=== PATIENT | female | born 1985 | race Hispanic/Latino ===

== ENCOUNTER 2016-07-11 17:27 | Emergency (ER) | payer MEDICAID, OTHER ==
[2016-07-11 18:22] VITALS: BMI 35.4
[2016-07-11 18:25] VITALS: BP 130/88; PULSE 108; RESP 18; TEMP 98.1; O2SAT 97
== END 2016-07-12 04:02 | disposition left against medical advice (07) ==
LOC: ED 17:27
DX: Z02.89 Encounter for other administrative examinations (principal); L02.91 Cutaneous abscess, unspecified

== ENCOUNTER 2016-11-06 21:32 | Emergency (ER) | payer OTHER ==
[2016-11-06 21:37] VITALS: O2SAT 100; BMI 30.1
[2016-11-06] MEDS ORDERED: DiphenhydrAMINE 50 mg/ml Inj IVP STA (21:42)
--- NOTE | 2016-11-06 21:53 | ED PDOC ---
Arrival/HPI <Julian Pedersen - Last Filed: 11/06/16 22:27> - General Historian: Patient <Rashard Palma A - Last Filed: 11/06/16 22:48> - General Chief Complaint: Headache Time Seen by Provider: 11/06/16 21:39 - History of Present Illness Narrative History of Present Illness (Text): 11/06/16 21:50 89yo female with PMHx of Migraine headache present with complaint of headache with associated nausea and vomiting x 3days. Notes she takes Immitrex and Zofran for her headache. States she ran out of her Xofran and feel she is dehydrated. States also still having headache. +Photophobia. She denies focal weakness, visual changes, trauma, abdominal pain, aphasia, any other complaint. (Rashard Palma A) Past Medical History - Provider Review Nursing Documentation Reviewed: Yes - Infectious Disease Hx of Infectious Diseases: None - Cardiac Hx Cardiac Disorders: No - Pulmonary Hx Respiratory Disorders: No - Neurological Hx Migraine: Yes - HEENT Hx HEENT Disorder: No - Renal Hx Renal Disorder: No - Endocrine/Metabolic Hx Endocrine Disorders: No - Hematological/Oncological Hx Blood Disorders: No - Integumentary Hx Dermatological Disorder: No - Musculoskeletal/Rheumatological Hx Musculoskeletal Disorders: No - Gastrointestinal Hx Gastrointestinal Disorders: No - Genitourinary/Gynecological Hx Genitourinary Disorders: No - Psychiatric Hx Psychophysiologic Disorder: No Hx Substance Use: No - Surgical History Hx Section: Yes (X 2) - Anesthesia Hx Anesthesia: No Hx Anesthesia Reactions: No Hx Malignant Hyperthermia: No <Rashard Palma - Last Filed: 11/06/16 22:48> Family/Social History - Physician Review Nursing Documentation Reviewed: Yes Family/Social History: Unknown Family HX Smoking Status: Light Smoker < 10 Cigarettes Daily Hx Alcohol Use: No Hx Substance Use: No <Rashard Palma A - Last Filed: 11/06/16 22:48> Allergies/Home Meds <Julian Pedersen - Last Filed: 11/06/16 22:27> <Rashard Palma A - Last Filed: 11/06/16 22:48> Allergies/Adverse Reactions: Allergies amoxicillin trihydrate [From Augmentin] Allergy (Verified 11/06/16 21:37) RASH potassium clavulanate [From Augmentin] Allergy (Verified 11/06/16 21:37) RASH Home Medications: Home Meds Medication Instructions Recorded Confirmed Aspirin/Acetaminophen/Caffeine 2 tab PO BID 11/06/16 11/06/16 [Excedrin Migraine Caplet] SUMAtriptan [Imitrex Tab] 50 mg PO BID PRN 11/06/16 11/06/16 Review of Systems - Physician Review All systems were reviewed & negative as marked: Yes - Review of Systems Constitutional: Normal Eyes: Normal ENT: Normal Respiratory: Normal Cardiovascular: Normal Gastrointestinal: Normal, Nausea, Vomiting. absent: Abdominal Pain, Constipation, Diarrhea, Hematochezia, Hematemesis Genitourinary Female: Normal Musculoskeletal: Normal Skin: Normal Neurological: Headache. absent: Dizziness, Focal Weakness Endocrine: Normal Hemo/Lymphatic: Normal Psychiatric: Normal <Diru,Happiness A - Last Filed: 11/06/16 22:48> Physical Exam Vital Signs Reviewed: Yes Temperature: Afebrile Blood Pressure: Normal Pulse: Regular Respiratory Rate: Normal Appearance: Positive for: Well-Appearing, Non-Toxic, Comfortable Pain Distress: None Mental Status: Positive for: Alert and Oriented X 3 - Systems Exam Head: Present: Atraumatic, Normocephalic Pupils: Present: PERRL Extroacular Muscles: Present: EOMI Conjunctiva: Present: Normal Mouth: Present: Moist Mucous Membranes Neck: Present: Normal Range of Motion Respiratory/Chest: Present: Clear to Auscultation, Good Air Exchange. No: Respiratory Distress, Accessory Muscle Use Cardiovascular: Present: Regular Rate and Rhythm, Normal S1, S2. No: Murmurs Abdomen: Present: Normal Bowel Sounds. No: Tenderness, Distention, Peritoneal Signs Back: Present: Normal Inspection Upper Extremity: Present: Normal Inspection. No: Cyanosis, Edema Lower Extremity: Present: Normal Inspection. No: Edema Neurological: Present: GCS=15, CN II-XII Intact, Speech Normal, Motor Func Grossly Intact, Normal Sensory Function, Normal Cerebellar Funct, Norm Deep Tendon Reflexes, Gait Normal, Memory Normal, Normal 2Pt Descrimination, Other ( No focal neurological deficit) Skin: Present: Warm, Dry, Normal Color. No: Rashes Psychiatric: Present: Alert, Oriented x 3, Normal Insight, Normal Concentration <Diru,Happiness A - Last Filed: 11/06/16 22:48> Vital Signs Temp Pulse Resp BP Pulse Ox 11/06/16 21:35 98.6 F 86 18 132/87 100 - PA / CLASSICS PROFESSOR / Resident Statement MD/DO has reviewed & agrees with the documentation as recorded. <Julian Pedersen - Last Filed: 11/06/16 22:27> Disposition/Present on Arrival <Julian Pedersen - Last Filed: 11/06/16 22:27> - Present on Arrival Any Indicators Present on Arrival: No History of DVT/PE: No History of Uncontrolled Diabetes: No Urinary Catheter: No History of Decub. Ulcer: No History Surgical Site Infection Following: None - Disposition Have Diagnosis and Disposition been Completed?: Yes Patient Plan: Discharge <Rashard Palma - Last Filed: 11/06/16 22:48> - Disposition Diagnosis: Headache Disposition: HOME/ ROUTINE Condition: STABLE Discharge Instructions (ExitCare): Migraine Headache (ED) Additional Instructions: Follow up with your Doctor/Neurologist Return to ED for any new or worsening symptoms Referrals: PCP,NO [Primary Care Provider] - Follow up with primary
[2016-11-06] MEDS ORDERED: Sodium Chloride 0.9% 1,000 ML IV STA (21:58)
[2016-11-06 22:16] LABS: URINE BILIRUBIN SMALL (NEGATIVE); URINE BLOOD LARGE (NEGATIVE); URINE GLUCOSE (UA) NEGATIVE (NEGATIVE); URINE LEUKOCYTE ESTERASE NEGATIVE Leu/uL (NEGATIVE); URINE NITRATE NEGATIVE (NEGATIVE); URINE PROTEIN 30 mg/dL (<30 mg/dL)
[2016-11-06 22:17] LABS: URINE APPEARANCE CLEAR (CLEAR); URINE COLOR YELLOW (YELLOW)
[2016-11-06 22:25] LABS: BASO # 0.07 K/mm3 (0.0-2.0); BASO % 0.7 % (0.0-3.0); EOS # 0.5 (0.0-0.7); EOS % 5.5 % (1.5-5.0); GRAN % 59.6 % (50.0-68.0); HEMOGLOBIN 12.7 gm/dL (12.0-16.0); LYMPH # 2.7 (1.2-3.4); LYMPH % 28.2 % (22.0-35.0); MEAN CELL VOLUME 88.8 fL (80.0-105.0); MEAN CORPUSCULAR HEMOGLOBIN 29.1 pg (25.0-35.0); MEAN CORPUSCULAR HGB CONC 32.7 g/dl (31.0-37.0); MEAN PLATELET VOLUME 9.8 fl (7.0-11.0); MONO # 0.6 (0.1-0.6); PLATELET COUNT 351 10^3/uL (120.0-450.0); RBC 4.37 10^6/uL (3.5-6.1); RED CELL DISTRIBUTION WIDTH 15.8 % (11.5-14.5); WHITE BLOOD COUNT 9.4 10^3/ul (4.5-11.0)
[2016-11-06 22:32] LABS: URINE AMORPHOUS SEDIMENT MODERATE; URINE BACTERIA LARGE (NEG)
[2016-11-06 22:35] LABS: ALB/GLOB RATIO 1.2 (1.1-1.8); ALBUMIN 4.3 g/dL (3.0-4.8); ALT/SGPT 69 U/L (7-56); AST/SGOT 54 U/L (15-39); BLOOD UREA NITROGEN 11 mg/dL (7-21); CALCIUM 9.7 mg/dL (8.4-10.5); GFR AFRICAN-AMERICAN > 60; GFR NON-AFRICAN AMERICAN > 60
[2016-11-06 23:09] VITALS: BP 124/52; PULSE 88; RESP 20; TEMP 97.6
== END 2016-11-06 23:09 | disposition home or self-care (01) ==
LOC: ED 21:32
DX: R51 Headache (principal)
CPT/HCPCS: 80053; 81001; 85025; 96374; 96375; 99285; J1200; J1885; J2765; J7040